=== PATIENT | male | born 1980 | race African-American/Black ===

== ENCOUNTER 2018-10-12 18:36 | Emergency (ER) | payer SELFPAY ==
[~2018-10-12] VITALS: Ht 185.4 cm; Wt 81.5 kg
[~2018-10-12 18:36] MED LIST: NOCURR
[2018-10-12 21:01] LABS: BASOPHILS % (AUTO) 0.9 % (0.0-2.0); EOSINOPHILS % (AUTO) 0.7 % (1.0-6.0); HEMATOCRIT 39.2 % (41-53); HEMOGLOBIN 13.1 g/dL (13.5-17.5); LYMPHOCYTES % (AUTO) 31.2 % (22.0-44.0); MEAN CORPUSCULAR HEMOGLOBIN 30.5 pg (26.0-34.0); MEAN CORPUSCULAR HGB CONC 33.6 G/dL (31.0-37.0); MEAN CORPUSCULAR VOLUME 91 fL (80-100); MONOCYTES # (AUTO) 0.6 K/uL (0.1-1.0); MONOCYTES % (AUTO) 8.8 % (2.0-9.0); NEUTROPHILS # (AUTO) 3.8 K/uL (1.8-7.7); NEUTROPHILS % (AUTO) 58.4 % (40.0-70.0); PLATELET COUNT (AUTO) 182 K/uL (150-450); RED BLOOD CELL COUNT(AUTO) 4.32 MIL/uL (4.50-5.90); RED CELL DISTRIBUTION WIDTH 13.8 % (11.5-14.5)
[2018-10-12 21:19] LABS: ANION GAP 6 mmol/L (8-16); CALCIUM, TOTAL 8.6 mg/dL (8.8-10.5); CARBON DIOXIDE 31 mmol/L (22-29); CHLORIDE 105 mmol/L (98-107); GLOMERULAR FILTR. RATE CALC > 60 mL/min (>60); GLUCOSE,RANDOM 92 mg/dL (70-110); POTASSIUM 3.5 mmol/L (3.5-5.1); SODIUM SERUM 142 mmol/L (136-145); UREA NITROGEN, BLOOD 7 mg/dL (7-18)
[2018-10-12 21:25] LABS: ALANINE AMINOTRANSFERASE 19 U/L (12-78); ALBUMIN 3.7 g/dL (3.4-5.0); ALKALINE PHOSPHATASE 50 U/L (46-116); ASPARTATE AMINOTRANSFERASE 14 U/L (15-37); BILIRUBIN,TOTAL 0.4 mg/dL (0.1-1.0); TOTAL PROTEIN, SERUM 6.3 g/dL (6.4-8.2)
[2018-10-12] MEDS ORDERED: IOVERSOL 320 MG/ML 100 ML VIAL ONE (21:36)
[2018-10-12] MEDS ORDERED: SODIUM CHLORIDE 0.9% 100 ML ONE (21:36)
[2018-10-12] MEDS ORDERED: DIAZEPAM 5 MG TABLET PO ONE (23:00)
[2018-10-12] MEDS ORDERED: KETOROLAC TROMETHAMINE 30 MG/ML VIAL IM ONE (23:00)
[2018-10-12 23:09] VITALS: BP 133/80
[2018-10-12] MEDS ORDERED: KETOROLAC TROMETHAMINE 30 MG/ML VIAL IVP ONE (23:15)
== END 2018-10-12 23:34 | disposition home or self-care (01) ==
LOC: EMS 18:36
DX: S13.4XXA Sprain of ligaments of cervical spine, initial encounter (principal); F12.90 Cannabis use, unspecified, uncomplicated; F17.210 Nicotine dependence, cigarettes, uncomplicated; X50.1XXA Overexertion from prolonged static or awkward postures, initial encounter; Y93.89 Activity, other specified; Y92.89 Other specified places as the place of occurrence of the external cause; Y99.8 Other external cause status
CPT/HCPCS: 36415; 70496; 70498; 80053; 85025; 96374; 99284; J1885; J7050; Q9967

== ENCOUNTER 2023-01-23 22:34 | Emergency (ER) | payer OTHER ==
[~2023-01-23] VITALS: Ht 185.4 cm; Wt 95.5 kg
[2023-01-23 22:37] VITALS: BP 105/62
[2023-01-23] MEDS ORDERED: KETOROLAC TROMETHAMINE 60 MG/2 ML VIAL IM ONE (23:30)
== END 2023-01-24 00:55 | disposition home or self-care (01) ==
LOC: EMS 22:35 → EDBD 22:35 → EMS 01-24 00:55
DX: M79.672 Pain in left foot (principal); F17.210 Nicotine dependence, cigarettes, uncomplicated; F12.90 Cannabis use, unspecified, uncomplicated
CPT/HCPCS: 99283; 73650; 93005; 96372; J1885

== ENCOUNTER 2023-02-26 21:34 | Emergency (ER) | payer OTHER ==
[~2023-02-26] VITALS: Ht 185.4 cm; Wt 100.0 kg
[2023-02-26] MEDS ORDERED: KETOROLAC TROMETHAMINE 30 MG/ML VIAL IM ONE (22:15)
[2023-02-26] MEDS ORDERED: HYDROCODONE/ACETAMINOPHEN 5-325 MG TABLET PO ONE (22:15)
[2023-02-26] MEDS ORDERED: LIDOCAINE 5% TRANSDERMAL PATCH TD ONE (22:30)
[2023-02-26] MEDS ORDERED: CYCL-448 PO (23:47)
[2023-02-26] MEDS ORDERED: LIDO700A15 TP (23:47)
[2023-02-27 00:30] VITALS: BP 129/73
== END 2023-02-27 01:37 | disposition home or self-care (01) ==
LOC: EMS 21:35
DX: M54.50 Low back pain, unspecified (principal); F17.210 Nicotine dependence, cigarettes, uncomplicated; F12.90 Cannabis use, unspecified, uncomplicated
CPT/HCPCS: 99283; 72100; 96372; J1885

== ENCOUNTER 2024-06-15 12:47 | Emergency (ER) | payer OTHER ==
[~2024-06-15] VITALS: Ht 185.4 cm; Wt 95.0 kg
[~2024-06-15 12:47] MED LIST changes: +CYCL-448 PO; +LIDO700A15 TP; -NOCURR
[2024-06-15 12:50] VITALS: BP 108/68; PULSE 98; RESP 18; TEMP 97.9; O2SAT 99
[2024-06-15] MEDS: IBUPROFEN 600 MG TABLET PO ONE (14:35)
[2024-06-15] MEDS ORDERED: IBUP-2088 PO (14:36)
== END 2024-06-15 14:55 | disposition home or self-care (01) ==
LOC: EMS 12:48
DX: S63.502A Unspecified sprain of left wrist, initial encounter (principal); G56.02 Carpal tunnel syndrome, left upper limb; F17.210 Nicotine dependence, cigarettes, uncomplicated; F12.90 Cannabis use, unspecified, uncomplicated; X58.XXXA Exposure to other specified factors, initial encounter; Y93.89 Activity, other specified; Y92.89 Other specified places as the place of occurrence of the external cause; Y99.8 Other external cause status
CPT/HCPCS: 99283; 99406

== ENCOUNTER 2024-06-27 17:04 | Emergency (ER) | payer OTHER ==
[~2024-06-27] VITALS: Ht 185.4 cm; Wt 95.0 kg
[~2024-06-27 17:04] MED LIST changes: -CYCL-448 PO; +IBUP-2088 PO; -LIDO700A15 TP
[2024-06-27 17:21] LABS: BASOPHILS % (AUTO) 0.8 % (0.0-2.0); EOSINOPHILS % (AUTO) 1.2 % (1.0-6.0); HEMATOCRIT 41.2 % (41-53); HEMOGLOBIN 13.4 g/dL (13.5-17.5); LYMPHOCYTES # (AUTO) 2.1 K/uL (1.0-4.8); LYMPHOCYTES % (AUTO) 46.6 % (22.0-44.0); MEAN CORPUSCULAR HEMOGLOBIN 30.1 pg (26.0-34.0); MEAN CORPUSCULAR HGB CONC 32.6 G/dL (31.0-37.0); MEAN CORPUSCULAR VOLUME 92 fL (80-100); MONOCYTES # (AUTO) 0.3 K/uL (0.1-1.0); NEUTROPHILS % (AUTO) 45.4 % (40.0-70.0); PLATELET COUNT (AUTO) 280 K/uL (150-450); RED BLOOD CELL COUNT(AUTO) 4.46 MIL/uL (4.50-5.90); WHITE BLOOD COUNT (AUTO) 4.4 K/uL (4.5-11.0)
[2024-06-27 17:31] LABS: ANION GAP 11 mmol/L (8-16); CALCIUM, TOTAL 8.6 mg/dL (8.8-10.5); CARBON DIOXIDE 25 mmol/L (22-29); CHLORIDE 103 mmol/L (98-107); CREATININE 1.01 mg/dL (0.60-1.30); GLOMERULAR FILTR. RATE CALC > 60 mL/min (>60); GLUCOSE,RANDOM 150 mg/dL (70-110); POTASSIUM 3.3 mmol/L (3.5-5.1); SODIUM SERUM 139 mmol/L (136-145); UREA NITROGEN, BLOOD 8 mg/dL (7-18)
[2024-06-27 17:39] LABS: TROPONIN I-HIGH SENSITIVITY 7 ng/L (<76)
[2024-06-27] MEDS: POTASSIUM CHLORIDE 20 MEQ ER TABLET PO ONE (18:19)
[2024-06-27] MEDS: IBUPROFEN 600 MG TABLET PO ONE (18:19)
[2024-06-27 19:41] LABS: TROPONIN I-HIGH SENSITIVITY 7 ng/L (<76)
[2024-06-27 20:26] VITALS: BP 137/73; PULSE 63; RESP 18; TEMP 98.6; O2SAT 99
== END 2024-06-27 20:29 | disposition home or self-care (01) ==
LOC: EMS 17:04
DX: R07.89 Other chest pain (principal); F17.210 Nicotine dependence, cigarettes, uncomplicated; F12.90 Cannabis use, unspecified, uncomplicated
CPT/HCPCS: 71045; 80048; 84484; 85025; 93005; 99285; 36415-L1; 36415-TC

== ENCOUNTER 2024-11-06 02:36 | Emergency (ER) | payer OTHER ==
[~2024-11-06] VITALS: Ht 185.4 cm; Wt 90.9 kg
[2024-11-06 02:39] VITALS: TEMP 100.4
[2024-11-06 03:02] LABS: COVID AG,FIA SOURCE NASAL SWAB
[2024-11-06 03:13] LABS: INFLUENZA TYPE A NEGATIVE FOR TYPE A (NEGATIVE); INFLUENZA TYPE B NEGATIVE FOR TYPE B (NEGATIVE); SARS-COV2 (COVID) ANTIGEN,FIA Negative (Negative)
[2024-11-06 04:22] LABS: BASOPHILS % (AUTO) 0.7 % (0.0-2.0); EOSINOPHILS % (AUTO) 0.1 % (1.0-6.0); HEMATOCRIT 36.1 % (41-53); HEMOGLOBIN 12.4 g/dL (13.5-17.5); LYMPHOCYTES # (AUTO) 1.1 K/uL (1.0-4.8); LYMPHOCYTES % (AUTO) 26.9 % (22.0-44.0); MEAN CORPUSCULAR HEMOGLOBIN 30.6 pg (26.0-34.0); MEAN CORPUSCULAR HGB CONC 34.3 G/dL (31.0-37.0); MEAN CORPUSCULAR VOLUME 89 fL (80-100); MONOCYTES # (AUTO) 0.7 K/uL (0.1-1.0); MONOCYTES % (AUTO) 18.6 % (2.0-9.0); NEUTROPHILS # (AUTO) 2.1 K/uL (1.8-7.7); NEUTROPHILS % (AUTO) 53.7 % (40.0-70.0); PLATELET COUNT (AUTO) 204 K/uL (150-450); RED BLOOD CELL COUNT(AUTO) 4.04 MIL/uL (4.50-5.90); RED CELL DISTRIBUTION WIDTH 13.9 % (11.5-14.5)
[2024-11-06 04:33] LABS: ANION GAP 11 mmol/L (8-16); CALCIUM, TOTAL 8.2 mg/dL (8.8-10.5); CARBON DIOXIDE 25 mmol/L (22-29); CHLORIDE 95 mmol/L (98-107); CREATININE 1.15 mg/dL (0.60-1.30); GLOMERULAR FILTR. RATE CALC > 60 mL/min (>60); GLUCOSE,RANDOM 102 mg/dL (70-110); POTASSIUM 3.2 mmol/L (3.5-5.1); SODIUM SERUM 131 mmol/L (136-145); UREA NITROGEN, BLOOD 8 mg/dL (7-18)
[2024-11-06 04:43] LABS: TROPONIN I-HIGH SENSITIVITY 10 ng/L (<76)
[2024-11-06 05:35] VITALS: BP 118/60; PULSE 92; RESP 18; O2SAT 98
[2024-11-06] MEDS: ONDANSETRON 4 MG TABLET PO ONE (05:43)
[2024-11-06] MEDS: KETOROLAC TROMETHAMINE 30 MG/ML VIAL IM ONE (05:43)
[2024-11-06] MEDS: ACETAMINOPHEN 500 MG TABLET PO ONE (05:43)
[2024-11-06] MEDS: POTASSIUM CHLORIDE 20 MEQ ER TABLET PO ONE (05:43)
[2024-11-06] MEDS ORDERED: ACET-3385 PO (06:43)
[2024-11-06] MEDS ORDERED: ONDA-104 PO (06:43)
[2024-11-06] MEDS ORDERED: IBUP-1506 PO (06:43)
== END 2024-11-06 07:07 | disposition home or self-care (01) ==
LOC: EMS 02:36
DX: R05.9 Cough, unspecified (principal); R11.2 Nausea with vomiting, unspecified; B34.9 Viral infection, unspecified; E87.6 Hypokalemia; F12.90 Cannabis use, unspecified, uncomplicated; F17.210 Nicotine dependence, cigarettes, uncomplicated; Z20.822 Contact with and (suspected) exposure to COVID-19
CPT/HCPCS: 99285; 71045; 87426; 80048; 84484; 85025; 87804; 36415; 93005; 96372; J1885; Q0162

== ENCOUNTER 2025-04-06 09:21 | Emergency (ER) | payer OTHER ==
[~2025-04-06] VITALS: Ht 185.4 cm; Wt 99.4 kg
[~2025-04-06 09:21] MED LIST changes: +ACET-3385 PO; +IBUP-1506 PO; -IBUP-2088 PO; +ONDA-104 PO
[2025-04-06 09:48] VITALS: TEMP 98
[2025-04-06] MEDS ORDERED: IOHEXOL 350 MG/ML 100 ML VIAL ONE (10:06)
[2025-04-06] MEDS ORDERED: SODIUM CHLORIDE 0.9% 100 ML ONE (10:06)
[2025-04-06] MEDS ORDERED: 0.9% SODIUM CHLORIDE 10 ML SYRINGE IVP ONE (10:06)
[2025-04-06] MEDS: SODIUM CHLORIDE 0.9% 1,000 ML IV ONE (10:12)
[2025-04-06] MEDS: KETOROLAC TROMETHAMINE 30 MG/ML VIAL IVP ONE (10:12)
[2025-04-06 10:15] LABS: BASOPHILS % (AUTO) 0.4 % (0.0-2.0); EOSINOPHILS % (AUTO) 0.3 % (1.0-6.0); HEMATOCRIT 38.4 % (41-53); HEMOGLOBIN 13.1 g/dL (13.5-17.5); LYMPHOCYTES # (AUTO) 1.5 K/uL (1.0-4.8); LYMPHOCYTES % (AUTO) 19.5 % (22.0-44.0); MEAN CORPUSCULAR HEMOGLOBIN 30.5 pg (26.0-34.0); MEAN CORPUSCULAR HGB CONC 34.1 G/dL (31.0-37.0); MEAN CORPUSCULAR VOLUME 89 fL (80-100); MONOCYTES # (AUTO) 0.8 K/uL (0.1-1.0); NEUTROPHILS # (AUTO) 5.3 K/uL (1.8-7.7); NEUTROPHILS % (AUTO) 68.8 % (40.0-70.0); PLATELET COUNT (AUTO) 200 K/uL (150-450); RED BLOOD CELL COUNT(AUTO) 4.29 MIL/uL (4.50-5.90); RED CELL DISTRIBUTION WIDTH 13.8 % (11.5-14.5); WHITE BLOOD COUNT (AUTO) 7.7 K/uL (4.5-11.0)
[2025-04-06 10:21] LABS: ANION GAP 4 mmol/L (8-16); CALCIUM, TOTAL 8.2 mg/dL (8.8-10.5); CARBON DIOXIDE 28 mmol/L (22-29); CHLORIDE 107 mmol/L (98-107); CREATININE 0.92 mg/dL (0.60-1.30); GLOMERULAR FILTR. RATE CALC > 60 mL/min (>60); GLUCOSE,RANDOM 104 mg/dL (70-110); POTASSIUM 3.7 mmol/L (3.5-5.1); SODIUM SERUM 139 mmol/L (136-145); UREA NITROGEN, BLOOD 7 mg/dL (7-18)
[2025-04-06 10:34] LABS: COVID AG,FIA SOURCE NASAL SWAB
[2025-04-06 10:53] LABS: RAPID GROUP A STREP NEGATIVE (NEGATIVE)
[2025-04-06 10:57] LABS: INFLUENZA TYPE A NEGATIVE FOR TYPE A (NEGATIVE); INFLUENZA TYPE B NEGATIVE FOR TYPE B (NEGATIVE); SARS-COV2 (COVID) ANTIGEN,FIA Negative (Negative)
[2025-04-06] MEDS: DEXAMETHASONE SOD PHOS 4 MG/ML VIAL IVP ONE (11:07)
[2025-04-06] MEDS: MORPHINE SULFATE 2 MG/ML SYRINGE IVP ONE (11:07)
[2025-04-06] MEDS: AMPICILLIN SODIUM/SULBACTAM NA 3 GM in SODIUM CHLORIDE 0.9% 100 ML IV ONE (11:18)
[2025-04-06 11:45] VITALS: BP 110/66; PULSE 63; RESP 17; O2SAT 96
== END 2025-04-06 15:41 | disposition short-term general hospital (02) ==
LOC: EMS 09:21
DX: L02.11 Cutaneous abscess of neck (principal); J36 Peritonsillar abscess; F12.90 Cannabis use, unspecified, uncomplicated; F17.210 Nicotine dependence, cigarettes, uncomplicated; Z79.899 Other long term (current) drug therapy; Z20.822 Contact with and (suspected) exposure to COVID-19
CPT/HCPCS: 99285; 70450; 96365; 96375; 96361; 87426; 80048; 85025; 87430; 87804; 36415; 70491; J1885; Q9967; J1100; J2270; J0295; J7030; J7050

== ENCOUNTER 2025-05-16 05:06 | Emergency (ER) | payer OTHER ==
[~2025-05-16] VITALS: Ht 188 cm; Wt 100.0 kg
[2025-05-16] MEDS: KETOROLAC TROMETHAMINE 60 MG/2 ML VIAL IM ONE (06:50)
[2025-05-16] MEDS: ACETAMINOPHEN 500 MG TABLET PO ONE (06:51)
[2025-05-16] MEDS ORDERED: IBUP-1554 PO (07:16)
[2025-05-16] MEDS ORDERED: HYDR-4062 PO (07:16)
[2025-05-16] MEDS ORDERED: CARI-493 PO (07:16)
[2025-05-16 08:36] VITALS: BP 122/66; PULSE 78; RESP 17; TEMP 97.1; O2SAT 98
== END 2025-05-16 08:37 | disposition home or self-care (01) ==
LOC: EMS 05:25
DX: M79.18 Myalgia, other site (principal); F12.90 Cannabis use, unspecified, uncomplicated; F17.210 Nicotine dependence, cigarettes, uncomplicated; Z79.899 Other long term (current) drug therapy
CPT/HCPCS: 99283; 96372; J1885